=== PATIENT | female | born 1950 | race Caucasian/White ===

== ENCOUNTER 2017-06-09 16:34 | Emergency (ER) | payer MEDICARE, MEDICAID ==
[2017-06-09 16:42] VITALS: BP 145/89
--- NOTE | 2017-06-09 17:07 | UC ---
Throat Pain/Nasal Jaden HPI - HPI Summary HPI Summary: 66 YEAR OLD MALE PRESENTS WITH COMPLAINS OF SORE THROAT AND FREQUENT URINATION. - History of Current Complaint Chief Complaint: UCGeneralIllness Stated Complaint: THROAT COMPLAINT Time Seen by Provider: 06/09/17 17:07 Hx Obtained From: Patient Onset/Duration: Sudden Onset Severity: Moderate Pain Scale Used: 0-10 Numeric - 5 Associated Signs & Symptoms: Positive: Negative - Allergies/Home Medications Allergies/Adverse Reactions: Allergies Allergy/AdvReac Type Severity Reaction Status Date / Time Acetaminophen [From Tylenol] Allergy Unknown Verified 06/09/17 16:36 Reaction Details PMH/Surg Hx/FS Hx/Imm Hx Previously Healthy: Yes - Surgical History Surgical History: Yes Surgery Procedure, Year, and Place: 1965 Tonsillectomy/adenoidectomy. 2011 [facility] , BSO tumor debulking, omenectomy, appendectomy, Lymphadenectomy, lysis of adhesions - Family History Known Family History: Positive: Unknown - Social History Alcohol Use: None Substance Use Type: None Smoking Status (MU): Never Smoked Tobacco - Immunization History Most Recent Tetanus Shot: 2008 Review of Systems Constitutional: Negative Skin: Negative Eyes: Negative ENT: Sore Throat, Nasal Discharge, Sinus Congestion, Sinus Pain/Tenderness Respiratory: Negative Cardiovascular: Negative Gastrointestinal: Negative Genitourinary: Frequency Motor: Negative Neurovascular: Negative Musculoskeletal: Negative Neurological: Negative Psychological: Negative All Other Systems Reviewed And Are Negative: Yes Physical Exam Triage Information Reviewed: Yes Vital Signs: Initial Vital Signs Temp 36.6 C 06/09/17 16:38 Pulse 82 06/09/17 16:38 Resp 20 06/09/17 16:38 BP 145/89 06/09/17 16:38 Pulse Ox 100 06/09/17 16:38 Vital Signs Reviewed: Yes Eye Exam: Normal ENT: Positive: Pharyngeal erythema, Nasal congestion, Nasal drainage Dental Exam: Normal Neck exam: Normal Neck: Positive: 1 Respiratory Exam: Normal Cardiovascular Exam: Normal Abdominal Exam: Normal Musculoskeletal Exam: Normal Neurological Exam: Normal Psychological Exam: Normal Skin Exam: Normal Throat Pain/Nasal Course/Dx - Differential Dx/Diagnosis Provider Diagnoses: SORE THROAT. PHARYNGITIS Discharge - Discharge Plan Condition: Stable Disposition: HOME Prescriptions: Amoxicillin PO (*) [Amoxicillin 500 MG CAP*] 500 mg PO TID #30 cap Patient Education Materials: Pharyngitis (ED), Dysuria (ED) Referrals: Crissy Mosquera MD [Primary Care Provider] -
[2017-06-09] MEDS: Amoxicillin PO (*) 500 MG CAP PO ONE (17:51)
--- NOTE | 2017-06-11 19:23 | ED ---
Progress - Progress Note Progress Note: CALL PATIENT. UCX (-). STOP ABX.IF WORSE ER. Course/Dx - Diagnoses Provider Diagnoses: Urinary frequency
== END 2017-06-09 17:59 | disposition home or self-care (01) ==
LOC: UCEAST 16:34
DX: J02.9 Acute pharyngitis, unspecified (principal); R35.0 Frequency of micturition; Z88.6 Allergy status to analgesic agent
CPT/HCPCS: 81003; 87086; 87651; 99213; A9270-GY; G0463

== ENCOUNTER 2017-11-09 17:05 | Emergency (ER) | payer MEDICARE, MEDICAID ==
[2017-11-09 18:53] VITALS: BP 127/88
--- NOTE | 2017-11-09 20:19 | RAD ---
indication: Patient reports trauma to occiput COMPARISON: CT of the brain December 16, [address] scan of the brain and c-spine was performed without intravenous contrast enhancement. Contiguous axial sections were obtained from the lung apices through the vertex. BRAIN: Evaluation is limited by patient motion artifact. The ventricles, cisterns and sulci are within normal limits. No significant focal abnormality or mass effect is seen. There are periventricular and subcortical white matter hypoattenuation, similar in appearance to the prior CT the brain and most consistent with chronic microvascular disease.The cohen-white differentiation is adequately maintained. There is no intracranial hemorrhage. No significant bony abnormality is present. The mastoid air cells are appropriately aerated. The visualized paranasal sinuses are clear. Incidentally noted is a large amount of cerumen in the bilateral external auditory canals. C-SPINE: There is nonspecific straightening of the normal cervical lordosis. The vertebral bodies and facet joints are otherwise appropriately aligned. Multilevel degenerative changes include loss of intervertebral disc height and marginal osteophyte formation. Degenerative changes are most severe from C3 to C6 where there is also a large amount of uncovertebral hypertrophy seen on the coronal plane images. There is no hyperdense material in the cervical canal to indicate hemorrhage. The visualized musculature and soft tissues are normal. There is no gross lymphadenopathy visualized. In the right lobe of the thyroid gland there is a 6 mm hypoattenuating focus. The visualized portion of the lung apices are clear. IMPRESSION: 1. No calvarial fracture or acute intracranial hemorrhage. 2. Incidentally noted is a large amount of cerumen in the bilateral external auditory canals. Please correlate to direct visualization and/or any difficulty with hearing. 3. Multilevel degenerative changes of the cervical spine without fracture or dislocation. 4. A 6 mm hypoattenuating focus is noted in the right lobe of the thyroid. This can be further characterized with ultrasound on a nonemergent basis.
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
== END 2017-11-09 20:40 | disposition home or self-care (01) ==
LOC: UCEAST 17:05
DX: S09.90XA Unspecified injury of head, initial encounter (principal); W22.01XA Walked into wall, initial encounter; Y93.9 Activity, unspecified; Y92.10 Unspecified residential institution as the place of occurrence of the external cause; H61.23 Impacted cerumen, bilateral; M50.322 Other cervical disc degeneration at C5-C6 level; R62.50 Unspecified lack of expected normal physiological development in childhood; F79 Unspecified intellectual disabilities; Z88.6 Allergy status to analgesic agent
CPT/HCPCS: 70450; 72125; 99212; G0463

== ENCOUNTER 2017-11-17 23:23 | Emergency (ER) | payer MEDICARE, MEDICAID ==
[2017-11-18 02:05] VITALS: BP 127/89
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
== END 2017-11-18 02:05 | disposition home or self-care (01) ==
LOC: ED 23:23
DX: S01.511A Laceration without foreign body of lip, initial encounter (principal); W06.XXXA Fall from bed, initial encounter; Z91.81 History of falling; Y93.9 Activity, unspecified; Y92.10 Unspecified residential institution as the place of occurrence of the external cause; K42.9 Umbilical hernia without obstruction or gangrene; R18.8 Other ascites; I10 Essential (primary) hypertension; R62.50 Unspecified lack of expected normal physiological development in childhood; F41.9 Anxiety disorder, unspecified; F31.9 Bipolar disorder, unspecified; Z88.6 Allergy status to analgesic agent
CPT/HCPCS: 12011; 99282

== ENCOUNTER 2018-02-03 11:56 | Emergency (ER) | payer MEDICARE, MEDICAID ==
[2018-02-03] MEDS ORDERED: NS 0.9% 1000 ML* 1,000 ML IV ONE (12:18)
--- NOTE | 2018-02-03 15:42 | ED ---
Lex Anyaa Stephanie, scribed for Bharat Pickens MD on 02/03/18 at 1224 . Complex/Multi-Sys Presentation - HPI Summary HPI Summary: The pt is a 67 y/o F presenting to the ED with c/o high lithium level per home health care case manager. Symptoms include fever, decreased oral intake and hallucinations. Per home health care case manager, her lithium level this morning was 3.1. HPI provided by home health care case manager. HPI limited by mental retardation of the pt. - History Of Current Complaint Chief Complaint: EDGeneral Time Seen by Provider: 02/03/18 12:00 Hx Obtained From: Family/Die Caster Onset/Duration: Gradual Onset, Lasting Hours, Still Present Timing: Constant Severity Currently: Mild Associated Signs And Symptoms: Positive: Fever, Other - decreased oral intake, hallucinations - Allergies/Home Medications Allergies/Adverse Reactions: Allergies Allergy/AdvReac Type Severity Reaction Status Date / Time acetaminophen Allergy Unknown Unknown Verified 02/03/18 12:16 Reaction Details Home Medications: Home Medications Clotrimazole/Betamethasone* [Lotrisone Cream*] 1 applic TOPICAL BID PRN [History Confirmed 02/03/18] Magnesium Hydroxide LIQ* [Milk of Magnesia LIQ*] 15 ml PO DAILY PRN 02/03/18 [ History Confirmed 02/03/18] Mineral Oil STERILE* [Sterile Mineral Oil*] 3 drop BOTH EARS DAILY PRN 02/03/18 [History Confirmed 02/03/18] Oxymetazoline 0.05% NASAL SPR* [Afrin 0.05% NASAL SPRAY*] 2 spray NASAL Q12H PRN 02/03/18 [History Confirmed 02/03/18] Pantoprazole TAB (NF) [Protonix TAB (NF)] 40 mg PO DAILY 02/03/18 [History Confirmed 02/03/18] Senna/Docusate (NF) [Sennokot-S] 2 tab PO DAILY 02/03/18 [History Confirmed 07/14] Sodium Phosphate ADULT ENEMA* [Fleet Enema*] 1 enema [place] DAILY PRN 02/03/18 [ History Confirmed 02/03/18] PMH/Surg Hx/FS Hx/Imm Hx Endocrine/Hematology History: Denies: Hx Diabetes, Hx Thyroid Disease Cardiovascular History: Reports: Hx Hypertension Respiratory History: Denies: Hx Asthma, Hx Chronic Obstructive Pulmonary Disease (COPD) GI History: Denies: Hx Ulcer Sensory History: Denies: Hx Contacts or Glasses, Hx Hearing Aid Opthamlomology History: Denies: Hx Contacts or Glasses Neurological History: Reports: Hx Developmental Delay Psychiatric History: Reports: Hx Anxiety, Hx Bipolar Disorder - Cancer History Cancer Type, Location and Year: 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 2011 [facility] , BSO tumor debulking, omenectomy, appendectomy, Lymphadenectomy, lysis of adhesions Infectious Disease History: No Infectious Disease History: Reports: Hx Hepatitis - Immune B by exposure Denies: Hx Clostridium Difficile, Hx Human Immunodeficiency Virus (HIV), Hx of Known/Suspected MRSA, Hx Shingles, Hx Tuberculosis, Hx Known/Suspected VRE, Hx Known/Suspected VRSA, History Other Infectious Disease, Traveled Outside the [place] in Last 30 Days - Family History Known Family History: Positive: Other - Patient has mental retardation and cannot provide history - Social History Occupation: Disabled Lives: [facility] Alcohol Use: None Hx Substance Use: No Substance Use Type: Reports: None Hx Tobacco Use: No Smoking Status (MU): Never Smoked Tobacco Have You Smoked in the Last Year: No Review of Systems Positive: Fever, Other - decreased oral intake Psychological: Other - hallucinations All Other Systems Reviewed And Are Negative: Yes Physical Exam - Summary Physical Exam Summary: Appearance: The patient is well-nourished in no acute distress and in no acute pain. Skin: The skin is warm and dry and skin color reflects adequate perfusion. HEENT: The head is normocephalic and atraumatic. The pupils are equal and reactive. The conjunctivae are clear and without drainage. Nares are patent and without drainage. Mouth reveals moist mucous membranes and the throat is without erythema and exudate. The external ears are intact. The ear canals are patent and without drainage. The tympanic membranes are intact. Neck: the neck is supple with full range of motion and non-tender. There are no carotid bruits. There is no neck vein distension. Respiratory: Chest is non-tender. Lungs are clear to auscultation and breath sounds are symmetrical and equal. Cardiovascular: Heart is regular rate and rhythm. There is no murmur or rub auscultated. There is no peripheral edema and pulses are symmetrical and equal. Abdomen: The abdomen is soft and non-tender. There are normal bowel sounds heard in all four quadrants and there is no organomegaly palpated. Musculoskeletal: There is no back tenderness noted. Extremities are non-tender with full range of motion. There is good capillary refill. There is no peripheral edema or calf tenderness elicited. Neurological: Patient is alert. She is mentally disabled at baseline. The patient has symmetrical motor strength in all four extremities. Cranial nerves are grossly intact. Deep tendon reflexes are symmetrical and equal in all four extremities. Psychiatric: The patient has an appropriate affect and does not exhibit any anxiety or depression. Triage Information Reviewed: Yes Vital Signs On Initial Exam: Initial Vitals Temp Pulse Resp BP Pulse Ox 99.6 F 72 22 97/63 94 02/03/18 12:00 02/03/18 12:00 02/03/18 12:00 02/03/18 12:00 02/03/18 12:00 Vital Signs Reviewed: Yes Diagnostics - Vital Signs Vital Signs Temp Pulse Resp BP Pulse Ox 02/03/18 12:00 99.6 F 72 22 97/63 94 - Laboratory Lab Statement: Any lab studies that have been ordered have been reviewed, and results considered in the medical decision making process. - EKG 12:24 Cardiac Rate: NL EKG Rhythm: Sinus Rhythm - 75 BPM Re-Evaluation - Re-Evaluation First Eval Re-Evaluation Time: 13:52 Change: Unchanged - ED physician discussed plan of discharge and palliative care with the pt's disease case manager rn. Complex Multi-Symp Course/Dx Course Of Treatment: Tara is in the process of transitioning to end of life care because of cancer. She has been on intermediate lithium and her level was noted to be elevated today. She also has an elevated BUN and Creatinine. I spoke with Dr. Mosquera and the plan is to hydrate her here and let her go back home with a palliative care consult. - Diagnoses Provider Diagnoses: Dehydration Discharge - Sign-Out/Discharge Documenting (check all that apply): Discharge/Admit/Transfer - Discharge - Discharge Plan Condition: Stable Disposition: HOME Additional Instructions: Follow up with palliative care. - Billing Disposition and Condition Condition: STABLE Disposition: HOME The documentation as recorded by the Lex jennings Stephanie accurately reflects the service I personally performed and the decisions made by me, Bharat Pickens MD.
[2018-02-03 16:34] VITALS: BP 114/86
== END 2018-02-03 16:31 | disposition home or self-care (01) ==
LOC: ED 11:56
DX: E86.0 Dehydration (principal); C80.1 Malignant (primary) neoplasm, unspecified; Z88.6 Allergy status to analgesic agent
CPT/HCPCS: 93005; 96360; 96361; 99282